=== PATIENT | female | born 2000 | race Hispanic/Latino ===

== ENCOUNTER 2023-01-07 13:58 | Outpatient (CLI) | payer OTHER | END 2023-01-07 13:59 | disposition home or self-care (01) | LOC: CSHULT 13:58 | PROVIDERS: ATTEND Family Medicine | DX: Z34.82 Encounter for supervision of other normal pregnancy, second trimester (principal); Z3A.21 21 weeks gestation of pregnancy | CPT/HCPCS: 76805 ==

== ENCOUNTER 2023-05-14 12:16 | Inpatient (IN) | payer OTHER ==
[2023-05-14] MEDS ORDERED: fentaNYL 50 mcg/mL 1 mL Vial SLOW IVP PRN (23:12)
[2023-05-14] MEDS ORDERED: Tranexamic Acid 1,000 MG/10 ML VIAL IVP PRN (23:12)
[2023-05-14] MEDS ORDERED: Carboprost 250 MCG/ML AMP IM PRN (23:12)
[2023-05-14] MEDS ORDERED: Methylergonovine 0.2 MG/ML VIAL IM PRN (23:12)
[2023-05-14] MEDS ORDERED: Diphenoxylate HCl/Atropine Tablet PO PRN (23:12)
[2023-05-14] MEDS ORDERED: Ibuprofen 800 MG TAB PO PRN (23:12)
[2023-05-14] MEDS ORDERED: Lidocaine 1% (PF) 30 ML VIAL SC PRN (23:12)
[2023-05-14] MEDS ORDERED: HYDROcodone/Acetaminophen 5/325 mg Tablet PO PRN (23:12)
[2023-05-14] MEDS ORDERED: Misoprostol 200 MCG TAB PR PRN (23:12)
[2023-05-14] MEDS ORDERED: Ondansetron PF 4 MG/2 ML Vial IVP PRN (23:12)
[2023-05-14] MEDS ORDERED: Acetaminophen 500 MG TAB PO PRN (23:12)
[2023-05-14] MEDS ORDERED: hydrALAZINE 20 MG/ML VIAL SLOW IVP PRN (23:12)
[2023-05-14] MEDS ORDERED: Promethazine HCl 25 MG/ML VIAL IM PRN (23:12)
[2023-05-14] MEDS ORDERED: Oxytocin 30 units/NS 500 ML 500 ML IV SCH ×3 (23:30)
[2023-05-15 00:26] LABS: Hematocrit 33.7 % (34.9-44.5); Hemoglobin 11.4 g/dL (12.0-15.5); Mean Corpuscular HGB CONC 33.8 g/dL (32.0-36.0); Mean Corpuscular Hemoglobin 28.8 pg (27.0-33.0); Mean Corpuscular Volume 85.1 fl (81.6-98.3); Mean Platelet Volume 11.8 fl (7.4-10.4); Platelet Count 286 10x3/uL (150-450); RBC Distribution Width 15.5 % (11.5-14.5); Red Blood Cell (RBC) Count 3.96 10x6/uL (3.90-5.03)
[2023-05-15] MEDS: Lactated Ringer's 1,000 ML IV SCH ×3 (00:30→18:51)
[2023-05-15 00:51] LABS: HBSAg Index 0.12 S/CO (0-0.99); Hep B Surf Ag - L&D Non-Reactive S/CO (NonReactive); Syphilis Antibody Nonreactive (Nonreactive); Syphilis Antibody Index 0.02 S/CO (<1.00 Non-Reactive)
[2023-05-15] MEDS: Misoprostol 100 MCG TAB PO SCH ×3 (01:00→10:28)
[2023-05-15] MEDS ORDERED: fentaNYL/Ropivacaine Epidural 100 ML ONE (04:34)
[2023-05-15] MEDS ORDERED: Naloxone HCl 0.4 mg/ml Vial IVP PRN ×2 (05:42)
[2023-05-15] MEDS ORDERED: Lactated Ringer's 500 ML IV PRN (05:42)
[2023-05-15] MEDS ORDERED: diphenhydrAMINE 50 MG/ML VIAL IVP PRN (05:42)
[2023-05-15] MEDS ORDERED: Moisturizing Cream (Eucerin) 113 GM JAR TOP PRN (05:42)
[2023-05-15] MEDS ORDERED: Ondansetron PF 4 MG/2 ML Vial IVP PRN ×2 (05:42→18:24)
[2023-05-15] MEDS ORDERED: Acetaminophen 325 MG TAB PO PRN (05:42)
[2023-05-15] MEDS ORDERED: ePHEDrine Sulfate 50 MG/10 ML VIAL SLOW IVP PRN (05:42)
[2023-05-15] MEDS ORDERED: Promethazine HCl 25 MG/ML VIAL IM PRN (05:42)
[2023-05-15] MEDS ORDERED: Communication Order-Pharmacy FS SCH (05:45)
[2023-05-15] MEDS ORDERED: fentaNYL 2 mcg/Ropivacaine 0.2% Epidural 100 ML CADD EPIDURAL SCH (05:45)
[2023-05-15 15:10] VITALS: BMI 21.5
[2023-05-15] MEDS ORDERED: Benzocaine-Menthol 82.5 ML CAN TOP PRN (18:24)
[2023-05-15] MEDS ORDERED: Milk Of Magnesia 30 ML UDCUP PO PRN (18:24)
[2023-05-15] MEDS ORDERED: HYDROcodone/Acetaminophen 5/325 mg Tablet PO PRN (18:24)
[2023-05-15] MEDS ORDERED: diphenhydrAMINE 25 MG CAP PO PRN (18:24)
[2023-05-15] MEDS ORDERED: Bisacodyl 10 MG SUPP PR PRN (18:24)
[2023-05-15] MEDS ORDERED: Lanolin Ointment 7 GM TUBE TOP PRN (18:24)
[2023-05-15] MEDS ORDERED: hydrALAZINE 20 MG/ML VIAL SLOW IVP PRN (18:24)
[2023-05-15] MEDS ORDERED: Boostrix 0.5 ML (Tdap) VIAL (>/=7 yrs of age) IM ONE (18:24)
[2023-05-15] MEDS: Ibuprofen 800 MG TAB PO SCH (21:30)
[2023-05-15] MEDS: Docusate 100 MG CAP PO SCH (21:30)
[2023-05-16] MEDS: Ibuprofen 800 MG TAB PO SCH ×3 (05:43→21:31)
[2023-05-16] MEDS: Ferrous Sulfate 325 MG TAB PO SCH ×2 (09:11→18:59)
[2023-05-16] MEDS: Prenatal Vitamin 1 TAB PO SCH (09:26)
[2023-05-16] MEDS: Docusate 100 MG CAP PO SCH ×2 (09:26→21:31)
[2023-05-16] MEDS ORDERED: Bupivacaine 0.25% HCL 30 ML VIAL ONE (19:04)
[2023-05-17] MEDS: Ibuprofen 800 MG TAB PO SCH (05:30)
[2023-05-17] MEDS: Ferrous Sulfate 325 MG TAB PO SCH (07:09)
[2023-05-17 08:21] VITALS: BP 109/67; TEMP 97.9
[2023-05-17] MEDS: Prenatal Vitamin 1 TAB PO SCH (08:40)
[2023-05-17] MEDS: Docusate 100 MG CAP PO SCH (08:40)
== END 2023-05-17 12:50 | disposition home or self-care (01) | DRG 807 ==
LOC: CSHLD 23:09 → CSHPP 05-15 18:40
PROVIDERS: ADMIT Family Medicine; ATTEND Family Medicine
PROC: 10907ZC Drainage of Amniotic Fluid, Therapeutic from Products of Conception, Via Natural or Artificial Opening (ICD-10-PCS; principal; 2023-05-15)
PROC: 10D07Z6 Extraction of Products of Conception, Vacuum, Via Natural or Artificial Opening (ICD-10-PCS; 2023-05-15)
PROC: 3E0P7VZ Introduction of Hormone into Female Reproductive, Via Natural or Artificial Opening (ICD-10-PCS; 2023-05-15)
PROC: 0UQMXZZ Repair Vulva, External Approach (ICD-10-PCS; 2023-05-15)
DX: O48.0 Post-term pregnancy (principal); Z37.0 Single live birth; O71.82 Other specified trauma to perineum and vulva; O70.0 First degree perineal laceration during delivery; O69.81X0 Labor and delivery complicated by cord around neck, without compression, not applicable or unspecified; Z3A.40 40 weeks gestation of pregnancy; O76 Abnormality in fetal heart rate and rhythm complicating labor and delivery
CPT/HCPCS: 36415; 51702; 85027; 86780; 86850; 86900; 86901; 87340; J2590; J7120; S0020